=== PATIENT | female | born 1950 | race Caucasian/White ===

== ENCOUNTER → 2017-02-19 | Day surgery (SDC) | payer BC ==
[2017-02-05 09:03] VITALS: BMI 22.0
[~2017-02-19] VITALS: Ht 154.9 cm; Wt 52.3 kg
[~2017-02-19] MED LIST: ASPI81TA28 PO; BNT10 PO; CALC-310 PO; CHOL1000 PO; CIPR-255 PO; DICY10CA12 PO; FLAX12003 PO; GLUC500C4 PO; LIDOCAINE HCL 2% 2 ML VIAL (20MG/ML) ONE; MAGN250T3 PO; METHYLENE BLUE 1% 10 ML VIAL ONE; METR500T PO; MULT-506 PO; OMEG10007 PO; ONDA4TAB10 SL; PRLSR20 PO; PROPOFOL IV EMULSION 10 MG/ML 20 ML VIAL IV ONE; PSYL48.59 PO; RED600TA PO; SODIUM CHLORIDE 0.9% 500ML 500 ML IV ONE; SUMA25TA12 PO; TRAZ50TA35 PO
[2017-02-19 12:42] VITALS: Ht 154.9 cm; Wt 52.3 kg
--- NOTE | 2017-02-19 13:25 | Endo History and Physical ---
History & Physical Date of Service: Feb 19, 2017. Chief Complaint: POLYP REMOVAL Referring Physician: DR GARRETT History of Present Illness colon polyp for EMR Past Surgical History Hx Cardiac Surgery: No Hx Internal Defibrillator: No Hx Pacemaker: No Hx Abdominal Surgery: Yes (TUBAL LIGATION) Hx of Implantable Prosthesis: No Hx Post-Op Nausea and Vomiting: No Hx Cancer Surgery: No Hx Thoracic Surgery: No Hx Orthopedic: No Hx Urinary Tract Surgery: No Family History Colon CA Social History Smoking Status: Never Smoker Hx Substance Use: No Hx Alcohol Use: No Allergies Coded Allergies: Prednisone (Verified Allergy, Unknown, RASH AND BLISTERS ON TONGUE AND FEET, 02/19/17) Current Medications Reported Home Medications Medications Dose Route/Sig Max Daily Dose Days Date Category Vitamin D3 (Cholecalciferol) 1,000 Unit Tab 1 Tab PO QAM 02/05/17 Reported Trazodone (Trazodone HCl) 50 Mg Tab 0.5 Tab PO HS 02/05/17 Reported Red Yeast Rice (Red Yeast Rice Extract) 600 Mg Tab 1 Tab PO QAM 02/05/17 Reported Prilosec (Omeprazole) 20 Mg Capcr 20 Mg PO QAM 02/05/17 Reported [place]-3 (Fish Oil) 1 Ea Cap 1 Cap PO WK 02/05/17 Reported Multivitamin (Multivitamins) Tab 1 Tab PO QAM 02/05/17 Reported Metamucil (Psyllium) 48.57 % Pow 2 Tbs PO QAM 02/05/17 Reported Magnesium 250 mg (Magnesium) 1 Tab Tab 1 Tab PO QAM 02/05/17 Reported Imitrex (Sumatriptan Succinate) 25 Mg Tab 25 Mg PO UD PRN 02/05/17 Reported Glucosamine (Glucosamine Sulfate) 500 Mg Cap 1 Cap PO QAM 02/05/17 Reported Flaxseed Oil (Flaxseed (Linseed)) 1 Cap Cap 1 Cap PO QAM 02/05/17 Reported Calcium Citrate + D (Calcium Citrate-Vitamin D) 1 Tab Tab 1 Tab PO QAM 02/05/17 Reported Aspirin Ec (Aspirin) 81 Mg Tab 81 Mg PO QAM 02/05/17 Reported Bentyl * (Dicyclomine HCl) 10 Mg Cap 10 Mg PO QID PRN 08/06/11 Reported Vital Signs Weight (Kilograms): 52.27 Height (Feet): 5 Height (Inches): 1 Date Time Temp Pulse Resp B/P Pulse Ox O2 Delivery O2 Flow Rate FiO2 02/19/17 12:49 36.7 84 18 124/72 97 Room Air Physical Exam AAO x3 Nl s1s2 Lungs CTA Abd soft NT/ND + BS - CCE Assessment and Plan polypectomy colon via EMR anticiapted.
--- NOTE | 2017-02-19 15:34 | Discharge Instructions ---
Endoscopy Patient Instructions Date / Procedure(s) Performed Feb 19, 2017. Colonoscopy Allergy Information Coded Allergies: Prednisone (Verified Allergy, Unknown, RASH AND BLISTERS ON TONGUE AND FEET, 02/19/17) Discharge Date / Findings Feb 19, 2017. polyppectomy via EMR Medication Instructions Stopped Medication(s): fish oil vitamins Restart Stopped Medication(s): Reported Home Medications Medications Dose Route/Sig Max Daily Dose Days Date Category Vitamin D3 (Cholecalciferol) 1,000 Unit Tab 1 Tab PO QAM 02/05/17 Reported Trazodone (Trazodone HCl) 50 Mg Tab 0.5 Tab PO HS 02/05/17 Reported Red Yeast Rice (Red Yeast Rice Extract) 600 Mg Tab 1 Tab PO QAM 02/05/17 Reported Prilosec (Omeprazole) 20 Mg Capcr 20 Mg PO QAM 02/05/17 Reported [place]-3 (Fish Oil) 1 Ea Cap 1 Cap PO WK 02/05/17 Reported Multivitamin (Multivitamins) Tab 1 Tab PO QAM 02/05/17 Reported Metamucil (Psyllium) 48.57 % Pow 2 Tbs PO QAM 02/05/17 Reported Magnesium 250 mg (Magnesium) 1 Tab Tab 1 Tab PO QAM 02/05/17 Reported Imitrex (Sumatriptan Succinate) 25 Mg Tab 25 Mg PO UD PRN 02/05/17 Reported Glucosamine (Glucosamine Sulfate) 500 Mg Cap 1 Cap PO QAM 02/05/17 Reported Flaxseed Oil (Flaxseed (Linseed)) 1 Cap Cap 1 Cap PO QAM 02/05/17 Reported Calcium Citrate + D (Calcium Citrate-Vitamin D) 1 Tab Tab 1 Tab PO QAM 02/05/17 Reported Aspirin Ec (Aspirin) 81 Mg Tab 81 Mg PO QAM 02/05/17 Reported Bentyl * (Dicyclomine HCl) 10 Mg Cap 10 Mg PO QID PRN 08/06/11 Reported Reported Home Medications Medications Dose Route/Sig Max Daily Dose Days Date Category Vitamin D3 (Cholecalciferol) 1,000 Unit Tab 1 Tab PO QAM 02/05/17 Reported Trazodone (Trazodone HCl) 50 Mg Tab 0.5 Tab PO HS 02/05/17 Reported Red Yeast Rice (Red Yeast Rice Extract) 600 Mg Tab 1 Tab PO QAM 02/05/17 Reported Prilosec (Omeprazole) 20 Mg Capcr 20 Mg PO QAM 02/05/17 Reported [place]-3 (Fish Oil) 1 Ea Cap 1 Cap PO WK 02/05/17 Reported Multivitamin (Multivitamins) Tab 1 Tab PO QAM 02/05/17 Reported Metamucil (Psyllium) 48.57 % Pow 2 Tbs PO QAM 02/05/17 Reported Magnesium 250 mg (Magnesium) 1 Tab Tab 1 Tab PO QAM 02/05/17 Reported Imitrex (Sumatriptan Succinate) 25 Mg Tab 25 Mg PO UD PRN 02/05/17 Reported Glucosamine (Glucosamine Sulfate) 500 Mg Cap 1 Cap PO QAM 02/05/17 Reported Flaxseed Oil (Flaxseed (Linseed)) 1 Cap Cap 1 Cap PO QAM 02/05/17 Reported Calcium Citrate + D (Calcium Citrate-Vitamin D) 1 Tab Tab 1 Tab PO QAM 02/05/17 Reported Aspirin Ec (Aspirin) 81 Mg Tab 81 Mg PO QAM 02/05/17 Reported Bentyl * (Dicyclomine HCl) 10 Mg Cap 10 Mg PO QID PRN 08/06/11 Reported Provider Instructions Activity Restrictions - No exercising or heavy lifting for 24 hours. - Do not drink alcohol the day of the procedure. - Do not drive a car or operate machinery until the day after the procedure. - Do not make any important decisions or sign important papers in 24 hours after the procedure. Following Day: - Return to full activity which may include returning to work/school. Diet Start your diet with liquids and light foods (jello, soup, juice, toast). Then eat your usual diet if not nauseated. Treatment For Common After Affects For mild abdominal pain, bloating, or excessive gas: - Rest - Eat lightly - Lie on right side Follow-Up Information Follow-up with DR GARRETT as scheduled Anesthesia Information What You Should Know You have had a procedure that required some medicine to reduce anxiety and discomfort. This treatment is called moderate sedation. After receiving the treatment, you may be sleepy, but you will be able to breathe on your own. The effects of the treatment may last for several hours. Follow these instructions along with Activity/Diet recommendations noted above: * Do NOT do anything where dizziness or clumsiness would be dangerous. * Rest quietly at home today, then you can be up and about tomorrow. * Have a responsible person stay with you the rest of today. * You may have had an I.V. today. If so, you may take the dressing off later today. Recommendations Call your doctor if: * Trouble breathing * Continuous vomiting for more than 24 hours * Temperature above 101 degrees * Severe abdominal pain or bloating * Pain not relieved by pain medicine ordered * There is increased drainage or redness from any incision * A large amount of rectal bleeding greater than 2-3 tablespoons. (If you had a polyp/s removed or have hemorrhoids, a small amount of blood - from the rectum is to be expected.) * You have any unanswered questions or concerns. IN THE EVENT OF A SERIOUS EMERGENCY, GO TO THE NEAREST EMERGENCY ROOM Your discharge instructions were prepared by provider Bryan Hernandez. Patient Instructions Signature Page Luz Marina Luna Patient (or Guardian) Signature/Date: I have read and understand the instructions given to me by my caregivers. Caregiver/RN/Doctor Signature/Date: The above-named patient and/or guardian has received patient instructions on this date. + Original Patient Signature Page (only) stays with chart. Please make copy for patient.
--- NOTE | 2017-02-19 15:40 | Anesthesiology Progress Note ---
Anesthesia Post Op Note Date & Time Feb 19, 2017 at 15:39 Vital Signs Pain Intensity: 0 Vital Signs Past 12 Hours Date Time Temp Pulse Resp B/P Pulse Ox O2 Delivery O2 Flow Rate FiO2 02/19/17 15:27 76 20 127/64 100 Room Air 02/19/17 15:12 81 20 132/77 99 Room Air 02/19/17 12:49 36.7 84 18 124/72 97 Room Air Notes Mental Status: alert / awake / arousable, participated in evaluation Pt Amnestic to Procedure: Yes Nausea / Vomiting: adequately controlled Pain: adequately controlled Airway Patency, RR, SpO2: stable & adequate BP & HR: stable & adequate Hydration State: stable & adequate Anesthetic Complications: no major complications apparent
[2017-02-19 15:43] VITALS: BP 127/70; PULSE 78; O2SAT 99
--- NOTE | 2017-02-19 15:50 | GI REPORT ---
Procedure Date: 02/19/2017 2:04 PM Procedure: Colonoscopy Indications: Therapeutic procedure for colon polyps Medicines: Propofol per Anesthesia Complications: No immediate complications. Estimated blood loss: None. Estimated Blood Loss: Estimated blood loss: none. Procedure: Pre-Anesthesia Assessment: - Prior to the procedure, a History and Physical was performed, and patient medications and allergies were reviewed. The patient's tolerance of previous anesthesia was also reviewed. The risks and benefits of the procedure and the sedation options and risks were discussed with the patient. All questions were answered, and informed consent was obtained. Prior Anticoagulants: The patient has taken no previous anticoagulant or antiplatelet agents. ASA Grade Assessment: II - A patient with mild systemic disease. After reviewing the risks and benefits, the patient was deemed in satisfactory condition to undergo the procedure. After I obtained informed consent, the scope was passed under direct vision. Throughout the procedure, the patient's blood pressure, pulse, and oxygen saturations were monitored continuously. The scope was introduced through the anus and advanced to the terminal ileum, with identification of the appendiceal orifice and IC valve. The patient tolerated the procedure well. The quality of the bowel preparation was good. The colonoscopy was unusually difficult due to multiple diverticula in the colon and restricted mobility of the colon. Successful completion of the procedure was aided by changing the patient to a supine position and using manual pressure. Findings: The perianal and digital rectal examinations were normal. Pertinent negatives include normal sphincter tone, no palpable rectal lesions and no anal lesion or abnormality was detected. A 15 mm polyp was found in the mid transverse colon. The polyp was sessile. A prior tattoo was placed. Area was successfully injected with 9 mL saline with methylene blue for a lift polypectomy and endoscopic mucosal resection. The polyp was removed with a hot snare at 20 goff. Resection and retrieval were complete using a Fernando net. Two hemostatic clips were successfully placed (MR conditional). Fulguration to ablate the lesion to prevent bleeding by snare was successful. Multiple small and large-mouthed diverticula were found in the sigmoid colon. Impression: - One 15 mm polyp in the mid transverse colon, removed with a hot snare. Resected and retrieved. Injected. Clips (MR conditional) were placed. Treated with a hot snare. - Diverticulosis in the sigmoid colon. Recommendation: - Discharge patient to home (ambulatory). - Patient has a contact number available for emergencies. The signs and symptoms of potential delayed complications were discussed with the patient. Return to normal activities tomorrow. Written discharge instructions were provided to the patient. - Advance diet as tolerated. - Continue present medications. - Await pathology results. - Repeat colonoscopy in 6 months for surveillance based on pathology results. MD Bryan Hidalgo MD 02/19/2017 3:48:45 PM This report has been signed electronically. Note Initiated On: 02/19/2017 2:04 PM I attest to the content of the Intraoperative Record and orders documented therein, exceptions below
== END | disposition home or self-care (01) ==
LOC: C.GI 12:20
PROVIDERS: ATTEND Internal Medicine Gastroenterology
DX: D12.3 Benign neoplasm of transverse colon (principal)

== ENCOUNTER → 2017-10-05 | Outpatient (CLI) | payer BC ==
[~2017-10-05] MED LIST changes: -BNT10 PO; -LIDOCAINE HCL 2% 2 ML VIAL (20MG/ML) ONE; -METHYLENE BLUE 1% 10 ML VIAL ONE; -METR500T PO; -PROPOFOL IV EMULSION 10 MG/ML 20 ML VIAL IV ONE; -SODIUM CHLORIDE 0.9% 500ML 500 ML IV ONE
[2017-10-05 17:34] LABS: HEMATOCRIT 41.5 % (37-47); MEAN CELL VOLUME 92.2 fL (80-100); MEAN CORPUSCULAR HEMOGLOBIN 30.9 pg (25-34); MEAN CORPUSCULAR HGB CONC 33.5 g/dl (32-36); MEAN PLATELET VOLUME 9.4 fL (7.4-10.4); PLATELET COUNT 232 K/uL (130-400); WHITE BLOOD COUNT 6.93 K/uL (4.8-10.8)
[2017-10-05 18:09] LABS: ALT/SGPT 21 U/L (12-78); BLOOD UREA NITROGEN 15 mg/dl (7-18); BUN/CREATININE RATIO 17.2 (10-20); CALCIUM 9.7 mg/dl (8.5-10.1); CARBON DIOXIDE 29 mmol/L (21-32); CHLORIDE 104 mmol/L (98-107); CHOLESTEROL 195 mg/dl (0-200); CREATININE 0.85 mg/dl (0.60-1.20); GLUCOSE 71 mg/dl (70-99); POTASSIUM 3.6 mmol/L (3.5-5.1); SODIUM 139 mmol/L (136-145); TRIGLYCERIDES 119 mg/dl (0-150); VERY LOW DENSITY LIPOPROT CALC 24 mg/dl
[2017-10-05 18:20] LABS: ALB/GLOB RATIO 1.2 (0.9-2); ALKALINE PHOSPHATASE 55 U/L (45-117); AST/SGOT 25 U/L (15-37); CHOLESTEROL/HDL RATIO 3.3; HDL CHOLESTEROL 59 mg/dl; LDL CHOLESTEROL CALCULATED 112 mg/dl; THYROID STIMULATING HORMONE 0.828 uIu/ml (0.300-4.500)
== END | disposition home or self-care (01) ==
LOC: C.LABBFT 12:27
PROVIDERS: ATTEND Internal Medicine
DX: K57.32 Diverticulitis of large intestine without perforation or abscess without bleeding (principal); E78.00 Pure hypercholesterolemia, unspecified

== ENCOUNTER → 2017-11-10 | Outpatient (CLI) | payer BC ==
[~2017-11-10] MED LIST changes: +OPTIRAY 320 IV PRN
--- NOTE | 2017-11-10 13:33 | DIAGNOSTIC IMAGING REPORT ---
ABD/PELVIS IV AND ORAL CONT CT DOSE: 243.53 mGy.cm HISTORY: Pain K57.32 Diverticulitis of [id number] TECHNIQUE: Multiaxial CT images of the abdomen and pelvis were performed following the use of intravenous and oral contrast. A dose lowering technique was utilized adhering to the principles of ALARA. COMPARISON STUDY: 06/02/2014 FINDINGS: Lung bases are clear. Mild fatty replacement of the liver. Gallbladder is negative for distention. Kidneys enhance uniformly. There are several very small sub-4 mm renal microcysts. Spleen is uniform. Small bowel pattern is nonobstructive. There are findings of mild wall thickening as well as diverticuli of the descending and sigmoid colonic regions. Wall thickening is somewhat increased in the prior study raising the possibility of chronic sigmoid and descending colonic diverticulosis. There is no evidence for acute diverticulitis. Bladder is midline. There is no free fluid within the pelvic cul-de-sac. IMPRESSION: 1. Chronic descending and sigmoid colonic diverticulosis. 2. No evidence for acute diverticulitis. 3. Mild fatty replacement of the liver. The above report was generated using voice recognition software. It may contain grammatical, syntax or spelling errors. Electronically signed by: Jhonatan Ceja M.D. 11/10/2017 1:31 PM Dictated Date/Time: 11/10/2017 1:10 PM
== END | disposition home or self-care (01) ==
LOC: C.CTS 12:47
PROVIDERS: ATTEND Internal Medicine
DX: K57.32 Diverticulitis of large intestine without perforation or abscess without bleeding (principal); K57.30 Diverticulosis of large intestine without perforation or abscess without bleeding

== ENCOUNTER → 2017-11-30 | Outpatient (CLI) | payer BC ==
[~2017-11-30] MED LIST changes: -OPTIRAY 320 IV PRN
--- NOTE | 2017-12-01 14:40 | MAMMOGRAPHY REPORT ---
BILATERAL DIGITAL SCREENING MAMMOGRAM TOMOSYNTHESIS WITH CAD: 11/30/2017 CLINICAL HISTORY: Routine screening. Patient has no complaints. TECHNIQUE: Breast tomosynthesis in addition to standard 2D mammography was performed. Current study was also evaluated with a Computer Aided Detection (CAD) system. COMPARISON: Comparison is made to exams dated: 10/20/2016 mammogram, 09/15/2013 mammogram, 2 mammogram, 07/15/2011 mammogram, 05/20/2010 mammogram - [facility], and 02/02/2009. BREAST COMPOSITION: There are scattered areas of fibroglandular density in both breasts. FINDINGS: No suspicious masses, calcifications, or areas of architectural distortion are noted in ei ther breast. There has been no significant interval change compared to prior exams. IMPRESSION: ACR BI-RADS CATEGORY 1: NEGATIVE There is no mammographic evidence of malignancy. A 1 year screening mammogram is recommended. The pa tient will receive written notification of the results. Approximately 10% of breast cancers are not detected with mammography. A negative mammographic report should not delay biopsy if a clinically suggestive mass is present. Aisha Sutton M.D. /:11/30/2017 15:13:32 Translator And Interpreter: Carol Curtis, [facility] letter sent: Normal 1/2 BI-RADS Code: ACR BI-RADS Category 1: Negative
== END | disposition home or self-care (01) ==
LOC: C.MAMM 14:34
PROVIDERS: ATTEND Internal Medicine
DX: Z12.31 Encounter for screening mammogram for malignant neoplasm of breast (principal)

== ENCOUNTER → 2017-12-07 | Outpatient (CLI) | payer BC | END | disposition home or self-care (01) | LOC: C.PAPS 14:01 | PROVIDERS: ATTEND Obstetrics & Gynecology | DX: Z01.419 Encounter for gynecological examination (general) (routine) without abnormal findings (principal); N95.2 Postmenopausal atrophic vaginitis; Z78.0 Asymptomatic menopausal state ==

== ENCOUNTER 2018-03-20 15:40 | Emergency (ER) | payer BC ==
[~2018-03-20] VITALS: Ht 154.9 cm; Wt 52.2 kg
[~2018-03-20 15:40] MED LIST changes: -ONDA4TAB10 SL
[2018-03-20 15:42] VITALS: TEMP 37.2; Ht 154.9 cm; Wt 52.2 kg
[2018-03-20] MEDS ORDERED: SODIUM CHLORIDE 0.9% 1000ML 1,000 ML IV STA (15:54)
--- NOTE | 2018-03-20 16:08 | DIAGNOSTIC IMAGING REPORT ---
CHEST ONE VIEW PORTABLE CLINICAL HISTORY: fever COMPARISON STUDY: 08/29/2017 FINDINGS: The cardiac and mediastinal contours are normal. There is no evidence of focal pulmonary consolidation. There is no evidence of failure. No pleural effusions are visualized.[ IMPRESSION: No active disease in the chest. Electronically signed by: Adolfo Dent M.D. 03/20/2018 4:07 PM Dictated Date/Time: 03/20/2018 4:06 PM
[2018-03-20 16:23] LABS: BASO % 0.1 %; BASO ABS # 0.02 K/uL (0-0.2); EOS % 0.7 %; EOS ABS # 0.09 K/uL (0-0.5); HEMATOCRIT 37.4 % (37-47); IG# 0.04 K/uL (0.00-0.02); LYMPH % 9.4 %; LYMPH ABS # 1.28 K/uL (1.2-3.4); MEAN CORPUSCULAR HEMOGLOBIN 30.6 pg (25-34); MEAN CORPUSCULAR HGB CONC 34.8 g/dl (32-36); MEAN PLATELET VOLUME 8.1 fL (7.4-10.4); MONO % 7.3 %; NEUT % 82.2 %; NEUT ABS # 11.21 K/uL (1.4-6.5); PLATELET COUNT 311 K/uL (130-400); RED CELL DISTRIBUTION WIDTH CV 13.6 % (11.5-14.5); RED CELL DISTRIBUTION WIDTH SD 43.7 fL (36.4-46.3); WHITE BLOOD COUNT 13.64 K/uL (4.8-10.8)
[2018-03-20 16:44] LABS: ALBUMIN 3.8 gm/dl (3.4-5.0); ALKALINE PHOSPHATASE 59 U/L (45-117); ALT/SGPT 22 U/L (12-78); AST/SGOT 22 U/L (15-37); BLOOD UREA NITROGEN 13 mg/dl (7-18); CALCIUM 8.9 mg/dl (8.5-10.1); CARBON DIOXIDE 25 mmol/L (21-32); CKMB < 0.5 ng/ml (0.5-3.6); CREATININE 0.83 mg/dl (0.60-1.20); GLUCOSE 124 mg/dl (70-99); POTASSIUM 3.7 mmol/L (3.5-5.1); SODIUM 137 mmol/L (136-145); TOTAL PROTEIN 7.6 gm/dl (6.4-8.2)
[2018-03-20 16:52] LABS: ISTAT CREATININE 0.8 mg/dl (0.6-1.3); ISTAT IONIZED CALCIUM 1.16 mmol/l (1.12-1.32); ISTAT POTASSIUM 3.7 mEq/L (3.3-5.0)
[2018-03-20] MEDS ORDERED: OPTIRAY 320 IV PRN (17:45)
--- NOTE | 2018-03-20 18:01 | DIAGNOSTIC IMAGING REPORT ---
CT ABD/PELVIS IV CONTRAST ONLY CLINICAL HISTORY: Left mid abdominal pain. Postoperative fever. COMPARISON STUDY: November 10, 2017 TECHNIQUE: Following the IV administration of 114 mL of Optiray-320, CT scan of the abdomen and pelvis was performed from the lung bases to the proximal femurs. Images are reviewed in the axial, sagittal, and coronal planes. IV contrast was administered without complication. A dose lowering technique was utilized adhering to the principles of ALARA. CT DOSE: 266.46 mGy.cm FINDINGS: Lower chest: There are minor basilar atelectatic changes. Liver: The contrast-enhanced liver is normal in size, contour, and attenuation. There is no intrahepatic biliary ductal dilatation. The hepatic veins and portal veins are patent. Gallbladder: Unremarkable. Spleen: Normal in size and attenuation. Pancreas: Unremarkable. Adrenal glands: Unremarkable. Kidneys: There are bilateral subcentimeter renal hypodensities, consistent with cysts. There is a left-sided nephroureteral stent present. There is minimal fullness of the left renal collecting system. Bowel: There are postsurgical changes present. There is a rectal anastomotic suture line. There is colonic wall thickening involving the descending colon consistent with a nonspecific colitis. There is a 22 mm complex lesion in the left paracolic gutter lateral to the left kidney and abutting a splenule. This contains soft tissue density and fat. This was not present on the prior study. Correlation with prior surgical history is recommended. This could represent an area of fat necrosis, hematoma, or abscess. There are no findings to indicate acute appendicitis. There is a moderate amount of stool present within the transverse and right colon. Peritoneum: There is no intraperitoneal free air or abdominal ascites. Vasculature: The abdominal aorta is normal in course and caliber. There is a filling defect with a left mesenteric vein consistent with thrombus. Adenopathy: None. Pelvic viscera: The bladder, and pelvic viscera are unremarkable. Skeletal structures: No destructive osseous lesions are seen. IMPRESSION: 1. Interval surgery with evidence of a low rectal anastomosis 2. Interval placement of a left-sided double pigtail nephroureteral stent 3. Left-sided mesenteric venous thrombus 4. 22 mm complex lesion within the left paracolic gutter lateral to the left kidney and abutting a splenule. This could represent area of fat necrosis hematoma or abscess. 5. Left colonic wall thickening indicative of nonspecific colitis. Electronically signed by: Adolfo Dent M.D. 03/20/2018 5:59 PM Dictated Date/Time: 03/20/2018 5:48 PM
[2018-03-20] MEDS ORDERED: PIPERACILLIN/TAZOBACTAM 4.5 GM/100ML D5W IV STA (18:15)
--- NOTE | 2018-03-20 18:36 | EMERGENCY ROOM VISIT NOTE ---
History Report prepared by Gabiibhuey: Ondina Campbell Under the Supervision of: Dr. Pedro Rosales D.O. First contact with patient: 15:45 Chief Complaint: FEVER Stated Complaint: FEVER,CHILLS,PAIN LEFT SIDE BACK; POST OP History of Present Illness The patient is a 67 year old female who presents to the Emergency Room with complaints of a persistent fever. She reports she had part of her colon removed 2 weeks ago at [facility] for a history of diverticulitis. 2 days ago, she developed back pain and today she noticed the chills and a fever of 101 degrees. She called her surgeon and he referred her here to the ED. The patient notes she did have a stent placed during surgery because her urethra was "nicked" during surgery. She was placed on Flomax after surgery but denies being placed on any antibiotics. The patient states she has had diarrhea off and on since the surgery, and this morning had a loose bowel movement. Pt denies headache, change in vision, chest pain, shortness of breath , nausea, vomiting, pain with urination, and melena. Source of History: patient Onset: earlier today Position: other (global) Timing: other (persistent) Associated Symptoms: + diarrhea, No headache, No chest pain, No SOB, No nausea, No vomiting, No melena, No urinary symptoms Review of Systems See HPI for pertinent positives & negatives. A total of 10 systems reviewed and were otherwise negative. Past Medical & Surgical Medical Problems: (1) Diverticulitis Surgical Problems: (1) S/P tubal ligation Social History Smoking Status: Never Smoker Alcohol Use: none Drug Use: none Marital Status: Housing Status: lives with family Occupation Status: retired Current/Historical Medications Scheduled Aspirin (Aspirin Ec), 81 MG PO QAM Calcium Citrate-Vitamin D (Calcium Citrate + D), 1 TAB PO QAM Cholecalciferol (Vitamin D3), 1 TAB PO QAM Fish Oil (Ottosen-3), 1 CAP PO DAILY Flaxseed (Linseed) (Flaxseed Oil), 1 CAP PO QAM Glucosamine Sulfate (Glucosamine), 1 CAP PO QAM Magnesium (Magnesium 250 mg), 1 TAB PO QAM Multivitamin (Multivitamin), 1 TAB PO QAM Omeprazole (Prilosec), 20 MG PO QAM Trazodone Hcl (Trazodone), 0.5 TAB PO HS Scheduled PRN Sumatriptan Succinate (Imitrex), 25 MG PO UD PRN for Migraine Allergies Coded Allergies: Prednisone (Verified Allergy, Severe, RASH AND BLISTERS ON TONGUE AND FEET , 03/20/18) Physical Exam Vital Signs Date Time Temp Pulse Resp B/P (MAP) Pulse Ox O2 Delivery O2 Flow Rate FiO2 03/20/18 19:49 100 16 134/87 97 03/20/18 19:18 100 16 134/87 97 Room Air 03/20/18 17:45 111 18 123/70 97 Room Air 03/20/18 16:18 103 16 128/76 97 Room Air 03/20/18 15:42 37.2 119 17 116/75 96 Room Air Physical Exam GENERAL: Sitting up in bed, alert, well appearing, well nourished, no distress, non-toxic EYE EXAM: normal conjunctiva. OROPHARYNX: no exudate, no erythema, lips, buccal mucosa, and tongue normal and mucous membranes are moist NECK: supple, no nuchal rigidity, no adenopathy, non-tender LUNGS: Clear to auscultation. Normal chest wall mechanics HEART: no murmurs, S1 normal and S2 normal ABDOMEN: Incision around umbilicus is clean, dry and intact. Abdomen soft, minimal tenderness in left mid abdomen, normo-active bowel sounds, no masses, no rebound or guarding. BACK: Back is symmetrical on inspection and there is no deformity, no midline tenderness, no CVA tenderness. SKIN: no rashes and no bruising UPPER EXTREMITIES: upper extremities are grossly normal. LOWER EXTREMITIES: No pitting edema. NEURO EXAM: Normal sensorium, cranial nerves II-XII grossly intact, normal speech, no gross weakness of arms, no gross weakness of legs. Gross sensation intact. Medical Decision & Procedures ER Provider Diagnostic Interpretation: Radiology results as stated below per my review and the radiologist's interpretation: CHEST ONE VIEW PORTABLE CLINICAL HISTORY: fever COMPARISON STUDY: 08/29/2017 FINDINGS: The cardiac and mediastinal contours are normal. There is no evidence of focal pulmonary consolidation. There is no evidence of failure. No pleural effusions are visualized. IMPRESSION: No active disease in the chest. Electronically signed by: Adolfo Dent M.D. 03/20/2018 4:[address] ABD/PELVIS IV CONTRAST ONLY CLINICAL HISTORY: Left mid abdominal pain. Postoperative fever. COMPARISON STUDY: November 10, 2017 TECHNIQUE: Following the IV administration of 114 mL of Optiray-320, CT scan of the abdomen and pelvis was performed from the lung bases to the proximal femurs. Images are reviewed in the axial, sagittal, and coronal planes. IV contrast was administered without complication. A dose lowering technique was utilized adhering to the principles of ALARA. CT DOSE: 266.46 mGy.cm FINDINGS: Lower chest: There are minor basilar atelectatic changes. Liver: The contrast-enhanced liver is normal in size, contour, and attenuation. There is no intrahepatic biliary ductal dilatation. The hepatic veins and portal veins are patent. Gallbladder: Unremarkable. Spleen: Normal in size and attenuation. Pancreas: Unremarkable. Adrenal glands: Unremarkable. Kidneys: There are bilateral subcentimeter renal hypodensities, consistent with cysts. There is a left-sided nephroureteral stent present. There is minimal fullness of the left renal collecting system. Bowel: There are postsurgical changes present. There is a rectal anastomotic suture line. There is colonic wall thickening involving the descending colon consistent with a nonspecific colitis. There is a 22 mm complex lesion in the left paracolic gutter lateral to the left kidney and abutting a splenule. This contains soft tissue density and fat. This was not present on the prior study. Correlation with prior surgical history is recommended. This could represent an area of fat necrosis, hematoma, or abscess. There are no findings to indicate acute appendicitis. There is a moderate amount of stool present within the transverse and right colon. Peritoneum: There is no intraperitoneal free air or abdominal ascites. Vasculature: The abdominal aorta is normal in course and caliber. There is a filling defect with a left mesenteric vein consistent with thrombus. Adenopathy: None. Pelvic viscera: The bladder, and pelvic viscera are unremarkable. Skeletal structures: No destructive osseous lesions are seen. IMPRESSION: 1. Interval surgery with evidence of a low rectal anastomosis 2. Interval placement of a left-sided double pigtail nephroureteral stent 3. Left-sided mesenteric venous thrombus 4. 22 mm complex lesion within the left paracolic gutter lateral to the left kidney and abutting a splenule. This could represent area of fat necrosis hematoma or abscess. 5. Left colonic wall thickening indicative of nonspecific colitis. Electronically signed by: Adolfo Dent M.D. 03/20/2018 5:59 PM Laboratory Results 5/19/18 16:09 Red Blood Count 4.25, Mean Corpuscular Volume 88.0, Mean Corpuscular Hemoglobin 30.6, Mean Corpuscular Hemoglobin Concent 34.8, Mean Platelet Volume 8.1, Neutrophils (%) (Auto) 82.2, Lymphocytes (%) (Auto) 9.4, Monocytes (%) (Auto) 7.3, Eosinophils (%) (Auto) 0.7, Basophils (%) (Auto) 0.1, Neutrophils # (Auto) 11.21, Lymphocytes # (Auto) 1.28, Monocytes # (Auto) 1.00, Eosinophils # (Auto) 0.09, Basophils # (Auto) 0.02 03/20/18 16:09 Test 03/20/18 16:09 03/20/18 16:15 03/20/18 16:19 03/20/18 16:37 White Blood Count 13.64 K/uL (4.8-10.8) Red Blood Count 4.25 M/uL (4.2-5.4) Hemoglobin 13.0 g/dL (12.0-16.0) Hematocrit 37.4 % (37-47) Mean Corpuscular Volume 88.0 fL (80-100) Mean Corpuscular Hemoglobin 30.6 pg (25-34) Mean Corpuscular Hemoglobin Concent 34.8 g/dl (32-36) Platelet Count 311 K/uL (130-400) Mean Platelet Volume 8.1 fL (7.4-10.4) Neutrophils (%) (Auto) 82.2 % Lymphocytes (%) (Auto) 9.4 % Monocytes (%) (Auto) 7.3 % Eosinophils (%) (Auto) 0.7 % Basophils (%) (Auto) 0.1 % Neutrophils # (Auto) 11.21 K/uL (1.4-6.5) Lymphocytes # (Auto) 1.28 K/uL (1.2-3.4) Monocytes # (Auto) 1.00 K/uL (0.11-0.59) Eosinophils # (Auto) 0.09 K/uL (0-0.5) Basophils # (Auto) 0.02 K/uL (0-0.2) RDW Standard Deviation 43.7 fL (36.4-46.3) RDW Coefficient of Variation 13.6 % (11.5-14.5) Immature Granulocyte % (Auto) 0.3 % Immature Granulocyte # (Auto) 0.04 K/uL (0.00-0.02) Prothrombin Time 10.4 SECONDS (9.0-12.0) Prothromb Time International Ratio 1.0 (0.9-1.1) Est Creatinine Clear Calc Drug Dose 48.9 ml/min Estimated GFR () 84.0 Estimated GFR (Non- 72.5 BUN/Creatinine Ratio 16.0 (10-20) Calcium Level 8.9 mg/dl (8.5-10.1) Magnesium Level 1.9 mg/dl (1.8-2.4) Total Bilirubin 0.4 mg/dl (0.2-1) Direct Bilirubin 0.1 mg/dl (0-0.2) Aspartate Amino Transf (AST/SGOT) 22 U/L (15-37) Alanine Aminotransferase (ALT/SGPT) 22 U/L (12-78) Alkaline Phosphatase 59 U/L (45-117) Total Creatine Kinase 37 U/L (26-192) Creatine Kinase MB < 0.5 ng/ml (0.5-3.6) Creatine Kinase MB Ratio (0-3.0) Troponin I < 0.015 ng/ml (0-0.045) Total Protein 7.6 gm/dl (6.4-8.2) Albumin 3.8 gm/dl (3.4-5.0) Urine Color YELLOW Urine Appearance CLEAR (CLEAR) Urine pH 5.0 (4.5-7.5) Urine Specific Crook 1.021 (1.000-1.030) Urine Protein 1+ (NEG) Urine Glucose (UA) NEG (NEG) Urine Ketones NEG (NEG) Urine Occult Blood 2+ (NEG) Urine Nitrite NEG (NEG) Urine Bilirubin NEG (NEG) Urine Urobilinogen NEG (NEG) Urine Leukocyte Esterase SMALL (NEG) Urine WBC (Auto) 5-10 /hpf (0-5) Urine RBC (Auto) >30 /hpf (0-4) Urine Hyaline Casts (Auto) 1-5 /lpf (0-5) Urine Epithelial Cells (Auto) >30 /lpf (0-5) Urine Bacteria (Auto) NEG (NEG) Urine Pathogenic Casts /lpf (0) Urine Mucus PRESENT (NONE PRSENT) Bedside Lactic Acid Venous 1.07 mmol/L (0.90-1.70) Bedside Hemoglobin 12.9 g/dl (12.0-16.0) Bedside Hematocrit 38 % (37-47) Bedside Sodium 138 mEq/L (135-144) Bedside Potassium 3.7 mEq/L (3.3-5.0) Bedside Chloride 102 mEq/L (101-112) Bedside Total CO2 24 mEq/l (24-31) Anion Gap 17.0 mmol/L (16-25) Bedside Blood Urea Nitrogen 13 mg/dl (7-18) Bedside Creatinine 0.8 mg/dl (0.6-1.3) Bedside Glucose (other) 129 mg/dl (70-99) Bedside Ionized Calcium (Ellis) 1.16 mmol/l (1.12-1.32) Laboratory results per my review. Medications Administered Medications (Trade) Dose Ordered Sig/Irma Route Start Time Stop Time Status Last Admin Dose Admin Sodium Chloride 1,000 ml @ 999 mls/hr Q1H1M STAT IV 03/20/18 15:54 03/20/18 16:54 DC 03/20/18 16:52 999 MLS/HR Piperacillin Sod/ Tazobactam Sod (Zosyn Iv) 4.5 gm NOW STAT IV 03/20/18 18:15 03/20/18 18:16 DC 03/20/18 18:28 4.5 GM ECG Per My Interpretation Indication: back/shoulder pain Rate (beats per minute): 99 Rhythm: sinus tachycardia Findings: no ectopy, other (normal axis) ED Course ED COURSE: Vital signs were reviewed and showed the patient is tachycardic. The patients medical record was reviewed The above diagnostic studies were performed and reviewed. ED treatments and interventions as stated above. 1547: The patient was evaluated in room C8. A complete history and physical examination was performed. 1554: NSS 1000 ml @ 999 mls/hr IV. 1815: Zosyn 4.5 gm IV. 1823: I discussed the patients case with Dr. Rubio, [facility] Colon and Rectal surgery. He has accepted the patient as a transfer to [facility]. 1830: Upon reevaluation, the patient is resting comfortably. I discussed my findings with the patient and she understands and agrees with the treatment plan. Based on the patients age, coexisting illnesses, exam and lab findings the decision to treat as an inpatient was made. The patient remained stable while under my care. The patient will be evaluated for further management. Medical Decision Differential diagnosis includes etiologies such as sepsis, UTI, pneumonia, metabolic, electrolyte abnormalities, cardiac sources, intracerebral event, toxicologic, neurologic, as well as others were entertained. Patient is a 59-year-old female who presents the ER for fevers, chills and left- sided abdominal pain postop 2 weeks for colon resection. Vitals show that she is tachycardic. Labs leukocytosis of 13.6 thousand. BMP along with LFTs, bilirubin, troponin was unremarkable. UA was contaminated with multiple epithelial cells. CT abdomen pelvis does suggest a questionable abscess and mesenteric vein thrombus. I discussed with her surgeon. Will hold on any anticoagulation at this time and patient was given a dose of IV back antibiotics along with IV fluids. She was updated at bedside. She was transferred to [facility] for a likely postop abscess. Medication Reconcilliation Current Medication List: was personally reviewed by me Blood Pressure Screening Patient's blood pressure: Normal blood pressure Blood pressure disposition: Did not require urgent referral Consults Time Called: 1814 Consulting Physician: Dr. Rubio, [facility] Colon [facility] Rect[facility] Surgery Returned Call: [phone] I discussed the patients case with Dr. Rubio, [facility] Colon and Rectal surgery. He has accepted the patient as a transfer to [facility]. Impression Primary Impression: Postoperative abscess Additional Impression: Mesenteric vein thrombosis Scribe Attestation The scribe's documentation has been prepared under my direction and personally reviewed by me in its entirety. I confirm that the note above accurately reflects all work, treatment, procedures, and medical decision making performed by me. Departure Information Dispostion Transfer Acute Care Facility (The patient has been accepted as a transfer to [facility]) Referrals Masoud Cullen M.D. (PCP) Patient Instructions My [facility] Problem Qualifiers Primary Impression: Postoperative abscess Encounter type: initial encounter Qualified Codes: T81.4XXA - Infection following a procedure, initial encounter
[2018-03-20 19:49] VITALS: BP 134/87; PULSE 100; O2SAT 97
== END 2018-03-20 19:49 | disposition short-term general hospital (02) ==
LOC: C.EDB 15:41 → C.EDC 19:49
DX: T81.4XXA Infection following a procedure, initial encounter (principal); Y84.9 Medical procedure, unspecified as the cause of abnormal reaction of the patient, or of later complication, without mention of misadventure at the time of the procedure; I81 Portal vein thrombosis; K57.32 Diverticulitis of large intestine without perforation or abscess without bleeding; Z79.82 Long term (current) use of aspirin; Z79.899 Other long term (current) drug therapy; Z88.8 Allergy status to other drugs, medicaments and biological substances

== ENCOUNTER → 2018-06-10 | Outpatient (CLI) | payer BC ==
[~2018-06-10] MED LIST changes: -CIPR-255 PO; -DICY10CA12 PO; -PSYL48.59 PO; -RED600TA PO
[2018-06-10 17:28] LABS: HEMATOCRIT 41.7 % (37-47); HEMOGLOBIN 13.8 g/dL (12.0-16.0); MEAN CELL VOLUME 90.7 fL (80-100); MEAN CORPUSCULAR HGB CONC 33.1 g/dl (32-36); MEAN PLATELET VOLUME 9.5 fL (7.4-10.4); PLATELET COUNT 246 K/uL (130-400); RED CELL DISTRIBUTION WIDTH CV 13.9 % (11.5-14.5); RED CELL DISTRIBUTION WIDTH SD 45.9 fL (36.4-46.3); WHITE BLOOD COUNT 5.98 K/uL (4.8-10.8)
== END | disposition home or self-care (01) ==
LOC: C.LABBFT 11:59
PROVIDERS: ATTEND Nurse Practitioner
DX: K14.6 Glossodynia (principal)

== ENCOUNTER → 2018-06-15 | Outpatient (CLI) | payer BC ==
[2018-06-15 13:03] LABS: BLOOD UREA NITROGEN 16 mg/dl (7-18); CALCIUM 9.4 mg/dl (8.5-10.1); CARBON DIOXIDE 28 mmol/L (21-32); CREATININE 0.94 mg/dl (0.60-1.20); GLUCOSE 93 mg/dl (70-99); POTASSIUM 3.7 mmol/L (3.5-5.1); SODIUM 139 mmol/L (136-145)
== END | disposition home or self-care (01) ==
LOC: C.LABBFT 09:25
PROVIDERS: ATTEND Urology
DX: N20.0 Calculus of kidney (principal); I48.91 Unspecified atrial fibrillation